=== PATIENT | female | born 1995 | race Caucasian/White ===

== ENCOUNTER 2017-03-17 10:59 | Emergency (ER) | payer MEDICAID ==
[~2017-03-17] VITALS: Ht 160 cm; Wt 43.9 kg
[2017-03-17 14:01] VITALS: BP 123/85
== END 2017-03-17 14:13 | disposition home or self-care (01) ==
LOC: ED 13:40
DX: O20.0 Threatened abortion (principal); Z3A.08 8 weeks gestation of pregnancy; Z37.9 Outcome of delivery, unspecified
CPT/HCPCS: 36415; 76830; 84702; 85025; 86901

== ENCOUNTER 2017-03-18 12:44 | Emergency (ER) | payer MEDICAID ==
[~2017-03-18] VITALS: Ht 160 cm; Wt 44.0 kg
[2017-03-18 16:57] VITALS: BP 119/69
== END 2017-03-18 17:01 | disposition home or self-care (01) ==
LOC: ED 14:39
DX: O03.9 Complete or unspecified spontaneous abortion without complication (principal)
CPT/HCPCS: 36415; 76801; 84702; 86901; 88305; 99285